=== PATIENT | female | born 1965 | race Caucasian/White ===

== ENCOUNTER 2020-11-17 23:36 | Inpatient (IN) ==
[2020-11-17] MEDS ORDERED: ONDANSETRON 4 MG/2 ML VIAL IV ONE (23:59)
[2020-11-17] MEDS ORDERED: ALUM/MAG/SIMETH/LIDO VISC 1:1 30 ML BOTTLE PO STA (23:59)
[2020-11-17] MEDS ORDERED: ASPIRIN 325 MG TABLET PO STA (23:59)
[2020-11-17] MEDS ORDERED: NITROGLYCERIN 2% OINT 1 INCH/GM PACK TOP STA (23:59)
[2020-11-18 00:33] LABS: Basophils % 0.4 % (0.0-0.8); Eosinophils # 0.1 10*3/uL (0.0-0.87); Eosinophils % 0.8 % (0.00-10.9); Hematocrit 34.2 VOL% (35.7-47.0); Hemoglobin 10.4 GM/DL (12.0-16.0); Immature Granulocytes % 0.3 %; Immature Granulocytes Absolute 0.03 #; Lymphocytes # 2.2 10*3/uL (1.4-4.0); Lymphocytes % 21.1 % (21.3-54.2); Mean Corpuscular HGB Conc 30.4 GM/DL (32-36); Mean Corpuscular Volume 84.2 FL (87-102); Mean Platelet Volume 10.6 FL (9.6-12.0); Monocytes % 11.1 % (1.7-12.7); Neutrophils % 66.3 % (38.7-73.9); Platelet Count 316 T/CUMM (130-400); Red Blood Count 4.06 MC/CUMM (3.8-5.5); Red Cell Distribution Width 16.7 % (9.3-17.3); White Blood Count 10.3 T/CUMM (4-12)
[2020-11-18] MEDS ORDERED: SODIUM CHLORIDE 0.9% 1,000 ML IV STA ×2 (00:37→01:31)
[2020-11-18 00:57] LABS: PT Patient Result 11.2 SECS (10.5-12.0); Partial Thromboplastin Time 26.8 SECS (23.9-33.8)
[2020-11-18 01:06] LABS: Alanine Aminotransferase 27 U/L (13-56); Albumin 3.2 G/DL (3.4-5.0); Alkaline Phosphatase 87 U/L (45-117); Aspartate Amino Transferase 32 U/L (0-37); Bilirubin,Total < 0.39 MG/DL (0.20-1.00); Blood Urea Nitrogen 28 MG/DL (7-18); Calcium 9.1 MG/DL (8.5-10.1); Carbon Dioxide 25 MMOL/L (21-32); Estimated Glom Filtration Rate 68 ML/MIN; Glucose 109 MG/DL (74-106); Osmolality,Calculated 279.8 MOS/KG (273-304); Potassium 3.2 MMOL/L (3.5-5.1); Sodium 137 MMOL/L (136-145); Total Protein 6.8 G/DL (6.4-8.2)
[2020-11-18] MEDS ORDERED: HEPARIN 1,000 UNIT/1 ML VIAL IV STA (01:31)
[2020-11-18] MEDS ORDERED: HEPARIN 5,000 UNIT/1 ML VIAL ONE (01:34)
[2020-11-18] MEDS ORDERED: HEPARIN DRIP 25,000 UNITS/500 ML PREMIX IV SCH (02:00)
[2020-11-18] MEDS ORDERED: ASPIRIN CHEW 81 MG TABLET PO ONE (02:06)
[2020-11-18] MEDS ORDERED: ASPIRIN CHEW 81 MG TABLET PO STA (02:09)
[2020-11-18] MEDS ORDERED: HEPARIN/NACL 0.9% 2 UNITS/ML 2,000 UNIT/1,000 ML BAG IV ONE (02:09)
[2020-11-18] MEDS ORDERED: LIDOCAINE 1% 20 ML VIAL ONE (02:09)
[2020-11-18] MEDS ORDERED: HYDROmorphone 2 MG/1 ML VIAL ONE (02:25)
[2020-11-18] MEDS ORDERED: MIDAZOLAM 2 MG/2 ML VIAL ONE (02:25)
[2020-11-18] MEDS ORDERED: diphenhydrAMINE 50 MG/1 ML VIAL ONE (02:27)
[2020-11-18] MEDS ORDERED: carvediloL 3.125 MG TABLET PO STA (03:11)
[2020-11-18 06:22] LABS: Calcium 8.4 MG/DL (8.5-10.1); Osmolality,Calculated 265.5 MOS/KG (273-304); Potassium 3.7 MMOL/L (3.5-5.1)
[2020-11-18 07:16] LABS: Risk Ratio 2.45; VLDL Cholesterol 12.6 MG/DL
[2020-11-18] MEDS ORDERED: carvediloL 3.125 MG TABLET PO ONE (09:00)
[2020-11-18 09:19] VITALS: BP 97/56
[2020-11-18 10:34] LABS: PT Patient Result 10.9 SECS (10.5-12.0); Partial Thromboplastin Time 23.2 SECS (23.9-33.8)
== END 2020-11-18 11:14 | disposition hospice, home (50) | DRG 286 ==
LOC: N.ED 23:36 → N.TELEN 11-18 02:12 → N.EDINP 11-18 02:35 → N.TELEN 11-18 03:26 → N.ICU 11-18 09:32
PROVIDERS: ADMIT Internal Medicine Cardiovascular Disease; ATTEND Internal Medicine Cardiovascular Disease
PROC: CLCCHCL (ICD-10-PCS; 2020-11-18 02:45)